=== PATIENT | female | born 1945 | race Caucasian/White ===

== ENCOUNTER 2021-05-16 11:34 | Outpatient (CLI) | payer MEDICARE, SELFPAY ==
--- NOTE | ~2021-05-16 | XR_ITS ---
XR lumbar spine min 4V DATE: 05/16/2021 12:07 INDICATION: Chronic bilateral low back pain TECHNIQUE: AP, lateral, bilateral oblique views, coned lateral lumbosacral view COMPARISON: None FINDINGS: There is diffuse osteopenia. There is 15 degrees rotatory dextroscoliosis of the lumbar spine measured from T12 to L4. There is multilevel degenerative disc disease, most pronounced on the left at L2-3, right at L4-5. No fracture or, spondylolysis or spondylolisthesis is detected. The lumbar pedicles are intact. The s acroiliac joints appear normal. IMPRESSION: 15 degrees rotatory dextroscoliosis and multilevel degenerative disc disease of lumbar sp ine Diffuse osteopenia Reviewed, dictated and finalized at location A. IMPRESSION: 15 degrees rotatory dextroscoliosis and multilevel degenerative dis c disease of lumbar spine Diffuse osteopenia
== END 2021-05-16 11:35 | disposition home or self-care (01) ==
PROVIDERS: PCP Family Medicine; Visit Provider Family Medicine
DX: M85.88 Other specified disorders of bone density and structure, other site (principal); M51.36 Other intervertebral disc degeneration, lumbar region
CPT/HCPCS: 72110

== ENCOUNTER → 2023-10-25 11:35 | Outpatient (REF) | payer MEDICARE, SELFPAY | LOC: ANHLAB 11:35 | PROVIDERS: PCP Family Medicine; Visit Provider Plastic Surgery | DX: D48.5 Neoplasm of uncertain behavior of skin (principal) | CPT/HCPCS: 88305 ==

== ENCOUNTER 2024-07-25 12:47 | Emergency (ER) | payer MEDICARE, SELFPAY ==
[2024-07-25 13:00] VITALS: BP 141/60; PULSE 74; RESP 16; TEMP 36.4; O2SAT 98
--- NOTE | 2024-07-25 13:00 | ED_ITS ---
HPI - URI/Sore Throat General Chief Complaint: Upper Respiratory Infection Stated Complaint: HEAD CONGESTION/COVID EXPOSURE Time Seen by Provider: 07/25/24 13:05 Source: patient Mode of arrival: ambulatory Limitations: no limitations History of Present Illness HPI Narrative: Regi is a 78-year-old female patient presenting to the clinic today with complaints of head congestion that started last night. States she has had positive COVID exposure. MD elicited complaint: nasal congestion Related Data Home Medications ?Medication ?Instructions ?Recorded ?Confirmed ?Last Taken ?Type budesonide-formoterol HFA 160 inhalation 07/25/24 Unknown History mcg-4.5 mcg/actuation aerosol inhaler montelukast 10 mg tablet mg 07/25/24 Unknown History naproxen 500 mg tablet mg 07/25/24 Unknown History prednisone 10 mg tablet mg 07/25/24 Unknown History sodium hyaluronate (viscosup) 10 mg intra-articular 07/25/24 Unknown History mg/mL(mw 2.4-3.6 million)intra-articular syringe (Euflexxa) Allergies Allergy/AdvReac Type Severity Reaction Status Date / Time Penicillins Allergy Unknown RASH Verified 12/20/23 10:23 Review of Systems Review of Systems: Pertinent positives per HPI. Patient denies any fever, chills, rash, headache, visual changes, dizziness, cough, shortness of breath, chest pain, palpitations, nausea, vomiting, diarrhea, constipation, abdominal pain, or any urinary issues. PMFSH Social History Social History Smoking status: Never smoker Alcohol intake: current Substance use: never Substance use type: does not use Comments At the time of my signature, I reviewed and agree with the nursing past medical, surgical, social, and family history. There is no relevant family history pertinent to the patient complaint. Exam Narrative: General: Well-developed, well nourished, in no apparent distress Head: Normocephalic, atraumatic Eyes: Pupils equally round and reactive to light bilaterally, EOM intact, sclera and conjunctive clear, no discharge, lids normal Ears: TMs intact and clear, ear canals clear, no drainage, grossly hearing normal. Nose: Nares patent, clear nasal discharge, no inflammation, no sinus tenderness. Mouth: Oral pharynx without lesions or masses, good dentition, MMM. Neck: Supple, trachea midline, no enlargement of anterior or posterior cervical nodes, no thyroid masses or goiter palpable. Cardio: Regular rate and rhythm, s1 and s2 normal, no murmur appreciated. Resp: Clear to auscultation bilaterally, no rhonchi, rales, wheezing or rubs Course Course Emergency Course: Portions of this record may have been created with voice recognition software. Level of Care: Express Care Visit Vital Signs Vital signs: Vital Signs Temperature 36.4 C 07/25/24 13:00 Pulse Rate 74 07/25/24 13:00 Respiratory Rate 16 07/25/24 13:00 Blood Pressure 141/60 H 07/25/24 13:00 Pulse Oximetry 98 07/25/24 13:00 Temperature 36.4 C 07/25/24 13:00 Pulse Rate 74 07/25/24 13:00 Respiratory Rate 16 07/25/24 13:00 Blood Pressure 141/60 H 07/25/24 13:00 Pulse Oximetry 98 07/25/24 13:00 Vital signs reviewed MDM - URI/Sore Throat MDM Narrative Medical decision making narrative: At the time of visit patient is resting comfortably on the exam table. Patient appears to be nontoxic. Labs: COVID test was negative in the clinic today. Plan: I suspect patient has URI. Supportive measures were discussed with the patient and they voiced understanding discharge instructions and agrees to treatment plan. Return precautions reviewed Differential Diagnosis Differential diagnosis: Likely upper respiratory infection, otitis media, sinusitis, viral infection, bronchitis, influenza, pharyngitis and other (COVID) Discharge Plan Discharge Clinical Impression: Upper respiratory infection Qualifiers: URI type: unspecified URI Qualified Code(s): J06.9 - Acute upper respiratory infection, unspecified Patient Disposition: Home, Self-Care Condition: Stable Instructions: Antibiotic Form, Upper Respiratory Infection (ED) Additional Instructions: COVID testing was negative in the clinic today. Increase fluids and stay well hydrated Tylenol/motrin for pain/fever Flonase and OTC antihistamines as directed Vicks vapor rub to open sinuses Sinus rinses for congestion Cepacol spray, cough drops, throat lozenges, warm tea with honey/lemon, gargle salt water to soothe throat BRAT diet for diarrhea Clear liquids x 24 hours then advance as tolerated for nausea/vomiting Go to the ED if you develop a worsening in your condition- high fever not controlled by Tylenol or Motrin, dehydration, weakness, lethargy, shortness of breath, or chest pain. Follow up with your PCP in 3-5 days if symptoms persist. Patient Language: [place] Citizen Prescriptions: No Action prednisone 10 mg tablet montelukast 10 mg tablet naproxen 500 mg tablet budesonide-formoterol 160-4.5 mcg/actuation HFA aerosol inhaler INHALATION Euflexxa 10 mg/mL(mw 2.4 -3.6 million) syringe INTRA-ARTICULAR Follow-up/Referrals: Harms,Romel Ball M.D. [Primary Care Provider] - Time of Disposition: 13:13 Quality NIHSS Nursing Documentation ED NIHSS nursing documentation: reviewed/agree
[2024-07-25 13:16] LABS: EDCOVIDSCREEN Negative (Negative)
== END 2024-07-25 13:28 | disposition home or self-care (01) ==
PROVIDERS: Emergency Provider Nurse Practitioner Family; PCP Family Medicine
DX: J06.9 Acute upper respiratory infection, unspecified (principal); Z20.822 Contact with and (suspected) exposure to COVID-19
CPT/HCPCS: 87426; 99212; G0463

== ENCOUNTER 2024-07-27 18:08 | Emergency (ER) | payer MEDICARE, SELFPAY ==
--- NOTE | ~2024-07-27 | CT_ITS ---
EXAMINATION: CTA chest PE protocol DATE: 07/28/2024 02:27 INDICATION: Hypoxia. TECHNIQUE: Computed tomography angiography (CTA) of the chest was performed with 100 mL Omnipaque-350 intravenous contrast timed to evaluate the pulmonary arteries. Coronal maximum intensity projection 3D-reconstructions were created by the technologist. Automated exposure control and iterative reconst ruction technique were employed. The dose-length product was 449.17 mGy-cm. COMPARISON: Chest CT 09/14/2014 FINDINGS: The lungs demonstrate mild atelectasis. No pleural effusion. Cardiomegaly is noted. There a re coronary artery calcifications. No pericardial effusion. There are acute pulmonary emboli in the u pper lobes and right lower lobe. There is a small sliding hiatal hernia. There are masses in the adre nal glands measuring up to 2.0 cm on the left measuring low attenuation, consistent with adenomas. Th ere is mild thoracic spondylosis. There is mild chronic height loss of multiple vertebral bodies. IMPRESSION: 1. Acute bilateral pulmonary emboli. I called this result to Dr. Singer. Reviewed, dictated and finalized at location A. TORING COORDINATOR
--- NOTE | ~2024-07-27 | XR_ITS ---
EXAMINATION: XR chest 2V Exam Date/Time: 07/27/2024 19:05 MARKETING FINANCE SPECIALIST HISTORY: sob, covid + SINCE WEDNESDAY Comparison: 08/26/2018. RESULT: Lines, tubes, and devices: None. Lungs and pleura: Clear. Cardiomediastinal silhouette: Stable. Other: No acute osseous or upper abdominal finding. IMPRESSION: No acute cardiopulmonary process. Reviewed, dictated and finalized at location K. ETING FINANCE SPECIALIST
[2024-07-27 18:15] VITALS: BP 132/73; PULSE 118; RESP 18; TEMP 36.3; O2SAT 95
--- NOTE | 2024-07-27 18:39 | ED.SOB ---
HPI - SOB/Dyspnea General Chief Complaint: Shortness of Breath/Dyspnea <Josey Hartman PA-C - Last Filed: 07/31/24 18:57> Stated Complaint: covid +, low O2 <Josey Hartman PA-C - Last Filed: 07/31/24 18:57> Time Seen by Provider: 07/27/24 18:39 <GABE Arevalo Last Filed: 07/31/24 18:57> Focused HPI: This is a 78 year old female that presents to the ER for low oxygen. Reports they have been as low as 85. Reports cough, shortness of breath, sore throat, ear pressure. Her PCP prompted her to be seen in the ER. She is COVID +. Denies fevers. GENERAL: Well-appearing, well-nourished, and in no acute distress. HEAD: Normocephalic, atraumatic. CHEST: Clear to auscultation. ?No respiratory distress. HEART: Regular rate and rhythm.? NEURO: ?Alert and oriented x3. Patient screened in triage and initial orders placed.? ?Additional care and disposition to be based upon?diagnostic testing and treatment. <Josey Hartman PA-C - Last Filed: 07/31/24 18:57> Focused HPI: This is a 78 year old female that presents to the ER for low oxygen. Reports they have been as low as 85. Reports cough, shortness of breath, sore throat, ear pressure. Her PCP prompted her to be seen in the ER. She is COVID +. Denies fevers. GENERAL: Well-appearing, well-nourished, and in no acute distress. HEAD: Normocephalic, atraumatic. CHEST: Clear to auscultation. ?No respiratory distress. HEART: Regular rate and rhythm.? NEURO: ?Alert and oriented x3. Patient screened in triage and initial orders placed.? ?Additional care and disposition to be based upon?diagnostic testing and treatment. <GABE Montgomery Last Filed: 07/28/24 17:08> Source: patient <GABE Montgomery Last Filed: 07/28/24 17:08> Mode of arrival: ambulatory <Marilyn Duenas PA-C - Last Filed: 07/28/24 17:08> Limitations: no limitations <Marilyn Duenas PA-C - Last Filed: 07/28/24 17:08> History of Present Illness HPI Narrative: Agree with above HPI. Patient reports she was exposed to COVID-19 on Wednesday, began having sx's on Wednesday, tested positive yesterday. Feels generally unwell, but denies feeling significantly short of breath. Does report that her oxygen level was down to 85%, but ranging more in the upper 80s today. She does have history of asthma. Denies chest pain. 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 <Marilyn Duenas PA-C - Last Filed: 07/28/24 17:08> Related Data Home Medications: Home Medications ?Medication ?Instructions ?Recorded ?Confirmed ?Last Taken ?Type montelukast 10 mg tablet 10 mg PO QPM 07/25/24 07/28/24 07/26/24 History naproxen 500 mg tablet 500 mg PO Q6H PRN pain 07/25/24 07/28/24 Unknown History prednisone 10 mg tablet 10 mg PO DAILY 07/25/24 07/28/24 07/26/24 History sodium hyaluronate (viscosup) 10 10 mg intra-articular [id number] 07/25/24 07/28/24 Unknown History mg/mL(mw 2.4-3.6 million)intra-articular syringe (Euflexxa) ergocalciferol (vitamin D2) 1,250 1,250 mcg PO WEEKLY 07/28/24 07/28/24 Unknown History mcg (50,000 unit) capsule fluticasone fur. 200 mcg-umeclid 1 inh inhalation DAILY 07/28/24 07/28/24 Unknown History 62.5 mcg-vilant 25 mcg inhalat.powder (Trelegy Ellipta) <Josey Hartman PA-C - Last Filed: 07/31/24 18:57> Allergies/Adverse Reactions: Allergies Allergy/AdvReac Type Severity Reaction Status Date / Time Penicillins Allergy Unknown RASH Verified 07/28/24 09:56 <Josey Hartman PA-C - Last Filed: 07/31/24 18:57> Review of Systems Review of Systems: All systems reviewed & are unremarkable except as noted in HPI. <Marilyn Duenas PA-C - Last Filed: 07/28/24 17:08> All systems reviewed & are unremarkable except as noted in HPI and below <Marilyn Duenas PA-C - Last Filed: 07/28/24 17:08> [facility] Family History Family History: Family History Father Cancer of kidney CHF (congestive heart failure) Mother Skin cancer <Josey Hartman PA-C - Last Filed: 07/31/24 18:57> Social History Social History: Social History Smoking status: Never smoker Alcohol intake: current Drinks per week: 1 Substance use: never Substance use type: does not use Do You Feel Safe in your Home?: Yes Lack of Transportation: No Lack of Food: Never True Current Housing: I Have Housing Concerned About Future Housing: No Difficulty Paying Gas/Electric Bills: No Difficulty Paying for Meds: No Currently Unemployed: No Education: Don't Know Difficulty w/ Childcare or Family Care: No Spiritual care concerns: No <Josey Hartman PA-C - Last Filed: 07/31/24 18:57> Exam Narrative: GENERAL: Mildly ill appearing, obese with BMI of 32.9, non-toxic, in no acute distress. HEAD: Normocephalic, atraumatic. RESPIRATORY: Airway patent, respirations nonlabored. Clear to auscultation bilaterally, no rales, rhonchi, wheezing. No significant focal lung sounds. Occasional coughing. CARDIOVASCULAR: Borderline tachycardic with regular rhythm without murmurs, rubs, or gallops. ABDOMINAL: Soft, nontender, nondistended. Normoactive BS. MUSCULOSKELETAL: Moves all extremities. No gross deformities. No peripheral edema. SKIN: Warm, dry, normal color. NEURO: A&O X3. Speech clear. Cranial nerves II-XII grossly intact. Steady gait. No ataxic movements. PSYCHIATRIC: Appropriate mood and affect. Normal interaction. <Marilyn Duenas PA-C - Last Filed: 07/28/24 17:08> Course SCHOOL PHYSICAL THERAPIST/PA Physician Supervision For this patient encounter, I reviewed the SCHOOL PHYSICAL THERAPIST or PA documentation, treatment plan, and medical decision making; and I had [id number] time with this patient. <Zay Singer MD - Last Filed: 07/28/24 06:26> Vital Signs Vital signs: Vital Signs Temperature 97.4 F L 07/27/24 18:15 Pulse Rate 118 H 07/27/24 18:15 Respiratory Rate 18 07/27/24 18:15 Blood Pressure 132/73 07/27/24 18:15 Pulse Oximetry 95 07/27/24 18:15 Temperature 98.1 F 07/28/24 05:51 Pulse Rate 63 07/28/24 05:51 Respiratory Rate 14 07/28/24 05:51 Blood Pressure 138/64 07/28/24 05:51 Pulse Oximetry 94 07/28/24 05:51 Oxygen Delivery Room Air 07/28/24 01:12 <Josey Hartman PA-C - Last Filed: 07/31/24 18:57> Vital Signs Temperature 97.4 F L 07/27/24 18:15 Pulse Rate 118 H 07/27/24 18:15 Respiratory Rate 18 07/27/24 18:15 Blood Pressure 132/73 07/27/24 18:15 Pulse Oximetry 95 07/27/24 18:15 Temperature 98.1 F 07/28/24 05:51 Pulse Rate 63 07/28/24 05:51 Respiratory Rate 14 07/28/24 05:51 Blood Pressure 138/64 07/28/24 05:51 Pulse Oximetry 94 07/28/24 05:51 Oxygen Delivery Room Air 07/28/24 01:12 <Marilyn Duenas PA-C - Last Filed: 07/28/24 17:08> Vital Signs Temperature 97.4 F L 07/27/24 18:15 Pulse Rate 118 H 07/27/24 18:15 Respiratory Rate 18 07/27/24 18:15 Blood Pressure 132/73 07/27/24 18:15 Pulse Oximetry 95 07/27/24 18:15 Temperature 98.1 F 07/28/24 05:51 Pulse Rate 63 07/28/24 05:51 Respiratory Rate 14 07/28/24 05:51 Blood Pressure 138/64 07/28/24 05:51 Pulse Oximetry 94 07/28/24 05:51 Oxygen Delivery Room Air 07/28/24 01:12 <Zay Singer MD - Last Filed: 07/28/24 06:26> MDM - SOB/Dyspnea MDM Narrative Medical decision making narrative: Patient presented to ED with known COVID-19, reporting low oxygen saturations today. Initial vital signs revealed tachycardia, oxygen was stable on room air at 95% initially. Upon my evaluation, patient's oxygen saturation was dipping down to 91 while she was sitting in the ED stretcher. She was ambulated throughout the ED and actually no hypoxia was noted. Patient did OK with this, did not feel significant SOB. EKG significant for sinus tachycardia, some nonspecific ST changes, no acute ST elevation or depression. Patient is denying chest pain. Trop/BNP pending. CBC is without leukocytosis. Possible mild hemoconcentration with elevated hemoglobin. Given fluids. Sodium is low at 127. Fluids ongoing. No evidence of mental status changes. Electrolytes are otherwise stable. Initial chest x-ray is clear. CT of chest was obtained due to report of hypoxia with known COVID-19 disease. Care signed out to Dr. Singer at shift change pending STAT RAD CTA results. <Marilyn Duenas PA-C - Last Filed: 07/28/24 17:08> Medical Records Attestation: I reviewed the patient's medical records. <Marilyn Duenas PA-C - Last Filed: 07/28/24 17:08> Lab Data Attestation: I reviewed the patient's lab results. <Marilyn Duenas PA-C - Last Filed: 07/28/24 17:08> Result diagrams: 07/27/24 20:59 07/27/24 20:59 <Josey Hartman PA-C - Last Filed: 07/31/24 18:57> Labs: Lab Results 07/27/24 Range/Units 20:59 WBC 8.8 (4.5-10.0) K/mm3 RBC 4.94 (4.2-5.4) M/mm3 Hgb 16.0 H (12.0-15.0) g/dL Hct 46.4 (37.0-47.0) % MCV 93.9 (80-100) fl MCH 32.4 (26-34) pg MCHC 34.5 (32-36) g/dl RDW 12.6 (11.5-14.5) % Plt Count 189 (150-375) k/mm3 MPV 9.4 (7.4-10.4) fl Immature Gran % (Auto) 0.9 H (0-0.5) % Neut % (Auto) 63.8 (45.5-73.1) % Lymph % (Auto) 17.3 L (18.3-44.2) % Pinal % (Auto) 16.6 H (2.6-8.5) % Eos % (Auto) 0.8 (0-4.4) % Baso % (Auto) 0.6 (0.2-1.2) % Lymph # (Auto) 1.52 (0.9-3.2) K/mm3 P[place] # (Auto) 1.5 H (0.1-0.6) K/mm3 Eos # (Auto) 0.1 (0-0.3) K/mm3 Baso # (Auto) 0.1 (0.0-0.1) K/mm3 Abs Immat Gran (auto) 0.08 H (0.00-0.031) K/mm3 Absolute Neuts (auto) 5.6 (1.3-6.7) K/mm3 Absolute Nucleated RBC 0.000 (0.0-0.012) K/mm3 Nucleated RBC % 0.0 (0.0-0.2) % PT 13.5 (11.1-14.7) Seconds INR 1.0 APTT 26.7 (22.3-36.8) Seconds Sodium 127 L (137-145) mmol/L Potassium 3.8 (3.4-5.0) mmol/L Chloride 98 (98-107) mmol/L Carbon Dioxide 28 (22-30) mmol/L Anion Gap 1 L (4-12) mmol/L BUN 15 (7-17) mg/dL Creatinine 0.80 (0.7-1.0) mg/dL Estim Creat Clear Calc 61 ml/min Estimated GFR > 60 (59 - ) Glucose 135 H (65-110) mg/dL Calcium 8.5 (8.4-10.2) mg/dL Total Bilirubin 0.9 (0.2-1.3) mg/dL AST 24 (14-36) U/L ALT 21 (6-35) U/L Alkaline Phosphatase 75 (38-126) U/L Troponin I < 0.012 (0.000-0.034) ng/mL NT-Pro-B Natriuret Pep 846 H (19.9-100) pg/mL Total Protein 7.0 (6.3-8.2) g/dL Albumin 4.0 (3.5-5.1) g/dL Influenza A (RT-PCR) Negative (Negative) Influenza B (RT-PCR) Negative (Negative) RSV (RT-PCR) Negative (Negative) SARS-CoV-2 RNA (RT-PCR) Positive A (Negative) <Josey Hartman PA-C - Last Filed: 07/31/24 18:57> Lab Results 07/27/24 Range/Units 20:59 WBC 8.8 (4.5-10.0) K/mm3 RBC 4.94 (4.2-5.4) M/mm3 Hgb 16.0 H (12.0-15.0) g/dL Hct 46.4 (37.0-47.0) % MCV 93.9 (80-100) fl MCH 32.4 (26-34) pg MCHC 34.5 (32-36) g/dl RDW 12.6 (11.5-14.5) % Plt Count 189 (150-375) k/mm3 MPV 9.4 (7.4-10.4) fl Immature Gran % (Auto) 0.9 H (0-0.5) % Neut % (Auto) 63.8 (45.5-73.1) % Lymph % (Auto) 17.3 L (18.3-44.2) % P[place] % (Auto) 16.6 H (2.6-8.5) % Eos % (Auto) 0.8 (0-4.4) % Baso % (Auto) 0.6 (0.2-1.2) % Lymph # (Auto) 1.52 (0.9-3.2) K/mm3 Pinal # (Auto) 1.5 H (0.1-0.6) K/mm3 Eos # (Auto) 0.1 (0-0.3) K/mm3 Baso # (Auto) 0.1 (0.0-0.1) K/mm3 Abs Immat Gran (auto) 0.08 H (0.00-0.031) K/mm3 Absolute Neuts (auto) 5.6 (1.3-6.7) K/mm3 Absolute Nucleated RBC 0.000 (0.0-0.012) K/mm3 Nucleated RBC % 0.0 (0.0-0.2) % PT 13.5 (11.1-14.7) Seconds INR 1.0 APTT 26.7 (22.3-36.8) Seconds Sodium 127 L (137-145) mmol/L Potassium 3.8 (3.4-5.0) mmol/L Chloride 98 (98-107) mmol/L Carbon Dioxide 28 (22-30) mmol/L Anion Gap 1 L (4-12) mmol/L BUN 15 (7-17) mg/dL Creatinine 0.80 (0.7-1.0) mg/dL Estim Creat Clear Calc 61 ml/min Estimated GFR > 60 (59 - ) Glucose 135 H (65-110) mg/dL Calcium 8.5 (8.4-10.2) mg/dL Total Bilirubin 0.9 (0.2-1.3) mg/dL AST 24 (14-36) U/L ALT 21 (6-35) U/L Alkaline Phosphatase 75 (38-126) U/L Troponin I < 0.012 (0.000-0.034) ng/mL NT-Pro-B Natriuret Pep 846 H (19.9-100) pg/mL Total Protein 7.0 (6.3-8.2) g/dL Albumin 4.0 (3.5-5.1) g/dL Influenza A (RT-PCR) Negative (Negative) Influenza B (RT-PCR) Negative (Negative) RSV (RT-PCR) Negative (Negative) SARS-CoV-2 RNA (RT-PCR) Positive A (Negative) <Marilyn Duenas PA-C - Last Filed: 07/28/24 17:08> Lab Results 07/27/24 Range/Units 20:59 WBC 8.8 (4.5-10.0) K/mm3 RBC 4.94 (4.2-5.4) M/mm3 Hgb 16.0 H (12.0-15.0) g/dL Hct 46.4 (37.0-47.0) % MCV 93.9 (80-100) fl MCH 32.4 (26-34) pg MCHC 34.5 (32-36) g/dl RDW 12.6 (11.5-14.5) % Plt Count 189 (150-375) k/mm3 MPV 9.4 (7.4-10.4) fl Immature Gran % (Auto) 0.9 H (0-0.5) % Neut % (Auto) 63.8 (45.5-73.1) % Lymph % (Auto) 17.3 L (18.3-44.2) % P[place] % (Auto) 16.6 H (2.6-8.5) % Eos % (Auto) 0.8 (0-4.4) % Baso % (Auto) 0.6 (0.2-1.2) % Lymph # (Auto) 1.52 (0.9-3.2) K/mm3 [place] # (Auto) 1.5 H (0.1-0.6) K/mm3 Eos # (Auto) 0.1 (0-0.3) K/mm3 Baso # (Auto) 0.1 (0.0-0.1) K/mm3 Abs Immat Gran (auto) 0.08 H (0.00-0.031) K/mm3 Absolute Neuts (auto) 5.6 (1.3-6.7) K/mm3 Absolute Nucleated RBC 0.000 (0.0-0.012) K/mm3 Nucleated RBC % 0.0 (0.0-0.2) % PT 13.5 (11.1-14.7) Seconds INR 1.0 APTT 26.7 (22.3-36.8) Seconds Sodium 127 L (137-145) mmol/L Potassium 3.8 (3.4-5.0) mmol/L Chloride 98 (98-107) mmol/L Carbon Dioxide 28 (22-30) mmol/L Anion Gap 1 L (4-12) mmol/L BUN 15 (7-17) mg/dL Creatinine 0.80 (0.7-1.0) mg/dL Estim Creat Clear Calc 61 ml/min Estimated GFR > 60 (59 - ) Glucose 135 H (65-110) mg/dL Calcium 8.5 (8.4-10.2) mg/dL Total Bilirubin 0.9 (0.2-1.3) mg/dL AST 24 (14-36) U/L ALT 21 (6-35) U/L Alkaline Phosphatase 75 (38-126) U/L Troponin I < 0.012 (0.000-0.034) ng/mL NT-Pro-B Natriuret Pep 846 H (19.9-100) pg/mL Total Protein 7.0 (6.3-8.2) g/dL Albumin 4.0 (3.5-5.1) g/dL Influenza A (RT-PCR) Negative (Negative) Influenza B (RT-PCR) Negative (Negative) RSV (RT-PCR) Negative (Negative) SARS-CoV-2 RNA (RT-PCR) Positive A (Negative) <Zay Singer MD - Last Filed: 07/28/24 06:26> Imaging Data Attestation: I personally reviewed and interpreted this imaging study as follows: <Marilyn Duenas PA-C - Last Filed: 07/28/24 17:08> Radiologist's impression: ITS Impressions Chest X-Ray 07/27/24 19:21 IMPRESSION: No acute cardiopulmonary process. Chest CTA 07/28/24 05:48 IMPRESSION: 1. Acute bilateral pulmonary emboli. I called this result to Dr. Singer. <Josey Hartman PA-C - Last Filed: 07/31/24 18:57> ECG Data EKG #1: Attestation: I personally reviewed and interpreted this ECG as follows: <Marilyn Duenas PA-C - Last Filed: 07/28/24 17:08> ECG completion date: 07/27/24 <GABE Montgomery Last Filed: 07/28/24 17:08> ECG completion time: 20:54 <GABE Montgomery Last Filed: 07/28/24 17:08> EKG Interpretation: tachycardia (102), sinus rhythm, PVCs and non-specific ST changes <Marilyn Duenas PA-C - Last Filed: 07/28/24 17:08> Critical Care Time Critical Care Time Critical Care Time: Yes <GABE Arevalo Last Filed: 07/31/24 18:57> Total Critical Care Time: 35 <GABE Arevalo Last Filed: 07/31/24 18:57> Discharge Plan Discharge Clinical Impression: COVID-19 <GABE Arevalo Last Filed: 07/31/24 18:57> Patient Disposition: Home, Self-Care <GABE Arevalo Last Filed: 07/31/24 18:57> Condition: Stable <GABE Arevalo Last Filed: 07/31/24 18:57> Instructions: Antibiotic Form, Upper Respiratory Infection (ED), COVID-19 (Coronavirus Disease 2019) (ED) <GABE Arevalo Last Filed: 07/31/24 18:57> Patient Language: Senegalese <GABE Arevalo Last Filed: 07/31/24 18:57> Prescriptions: No Action prednisone 10 mg tablet 10 mg PO DAILY montelukast 10 mg tablet 10 mg PO QPM naproxen 500 mg tablet 500 mg PO Q6H PRN (Reason: pain) Euflexxa 10 mg/mL(mw 2.4 -3.6 million) syringe 10 mg INTRA-ARTICULAR [id number] ergocalciferol (vitamin D2) 1,250 mcg (50,000 unit) capsule 1,250 mcg PO WEEKLY Trelegy Ellipta 200-62.5-25 mcg blister with device 1 inh INHALATION DAILY Eliquis 5 mg Tablet 5 mg PO Q12HR Qty: 60 0RF Eliquis 5 mg Tablet 10 mg PO Q12HR Qty: 26 0RF <GABE Arevalo Last Filed: 07/31/24 18:57> Follow-up/Referrals: Harms,Romel K., M.D. [Primary Care Provider] - <Josey Hartman PA-C - Last Filed: 07/31/24 18:57> Time of Disposition: 05:42 <Josey Hartman PA-C - Last Filed: 07/31/24 18:57> 05:42 <Marilyn Duenas PA-C - Last Filed: 07/28/24 17:08> 05:42 <Zay Singer MD - Last Filed: 07/28/24 06:26> Sign Out Sign Out Data: Patient Sign Out occurred on 07/28/24 at 04:06. Patient's care was discussed, and care was transferred from Marilyn Duenas PA-C to Zay Singer MD. <Josey Hartman PA-C - Last Filed: 07/31/24 18:57>
--- NOTE | 2024-07-27 18:41 | ECG_ITS ---
Test Date: 2024-07-27 20:54:12 Measurements Intervals [place] Rate: 102 P: 58 NC: 166 QRS: 14 QRSD: 86 T: 70 QT: 313 QTc: 408 Interpretive Statements SINUS TACHYCARDIA WITH OCCASIONAL SUPRAVENTRICULAR PREMATURE COMPLEXES POSSIBLE LEFT ATRIAL ENLARGEMENT [-0.1mV P WAVE IN V1/V2] NONSPECIFIC ST & T-WAVE ABNORMALITY ABNORMAL ECG No previous ECG available for comparison Electronically Signed On 07-28-2024 17:10:18 LIFE [employer] by Fred Goodman M.D.
[2024-07-27 21:01] VITALS: BP 113/53; PULSE 104; RESP 20; TEMP 37.1; O2SAT 92
[2024-07-27 21:09] LABS: Basophils Absolute Auto 0.1 K/mm3 (0.0-0.1); Basophils Percent Auto 0.6 % (0.2-1.2); Eosinophils Absolute Auto 0.1 K/mm3 (0-0.3); Eosinophils Percent Auto 0.8 % (0-4.4); Hematocrit 46.4 % (37.0-47.0); Immature Granulocyte Absolute 0.08 K/mm3 (0.00-0.031); Immature Granulocyte Percent A 0.9 % (0-0.5); Lymphocytes Absolute Auto 1.52 K/mm3 (0.9-3.2); Lymphocytes Percent Auto 17.3 % (18.3-44.2); Mean Corpuscular HGB Conc 34.5 g/dl (32-36); Mean Corpuscular Hemoglobin 32.4 pg (26-34); Mean Corpuscular Volume 93.9 fl (80-100); Mean Platelet Volume 9.4 fl (7.4-10.4); Monocytes Absolute Auto 1.5 K/mm3 (0.1-0.6); Monocytes Percent Auto 16.6 % (2.6-8.5); Neutrophils Absolute Auto 5.6 K/mm3 (1.3-6.7); Neutrophils Percent Auto 63.8 % (45.5-73.1); Platelet Count Result 189 k/mm3 (150-375); Red Blood Count 4.94 M/mm3 (4.2-5.4); Red Cell Distribution Width 12.6 % (11.5-14.5); White Blood Count 8.8 K/mm3 (4.5-10.0)
[2024-07-27 21:21] LABS: Alanine Aminotransferase 21 U/L (6-35); Alkaline Phosphatase 75 U/L (38-126); Anion Gap 1 mmol/L (4-12); Aspartate Amino Transferase 24 U/L (14-36); Bilirubin,Total 0.9 mg/dL (0.2-1.3); Blood Urea Nitrogen 15 mg/dL (7-17); Calcium 8.5 mg/dL (8.4-10.2); Carbon Dioxide 28 mmol/L (22-30); Chloride 98 mmol/L (98-107); Estimated CRCL calculation 61 ml/min; Estimated Glomerular Filt Rate > 60; Glucose 135 mg/dL (65-110); Potassium 3.8 mmol/L (3.4-5.0); Sodium 127 mmol/L (137-145)
[2024-07-27 21:24] LABS: Prothrombin Time 13.5 Seconds (11.1-14.7)
[2024-07-27 21:25] LABS: Partial Thromboplastin Time 26.7 Seconds (22.3-36.8)
[2024-07-27 21:45] LABS: Influenza A QL RT-PCR Negative (Negative); Influenza B QL RT-PCR Negative (Negative); RSV RNA, RT-PCR Negative (Negative); SARS-CoV-2 RNA PCR Positive (Negative)
[2024-07-28 01:12] VITALS: BP 162/74; PULSE 84; RESP 17; O2SAT 97
[2024-07-28] MEDS: SODIUM CHLORIDE 0.9% IV 1,000 ML 999 ML IV CONT (02:21)
[2024-07-28 02:50] LABS: NT Pro B Type Natriuretic Pept 846 pg/mL (19.9-100); Troponin I < 0.012 ng/mL (0.000-0.034)
[2024-07-28 05:51] VITALS: BP 138/64; PULSE 63; RESP 14; TEMP 36.7; O2SAT 94
--- OUTSIDE RECORDS SUMMARY | 2024-08-04 02:21 | XMS_ITS | Data Portability ---
Author Organization [place] - S [place] [employer] [facility], Main Office Address [address] [place] [address] Care Team Providers Care Petroleum Transport Driver Name Role Phone BARBY JOE Primary Care Provider [phone] BARBY JOE Referring Provider Assessment Encounter Date Assessment Date Assessment LastModified by Organization Details LastModified Time 04/28/2024 04/28/2024 By x-ray exam th e patient is noted to have moderate primary osteoarthritis of the left knee joint particularly in the medial and patellofemoral compartments. We talked about treatment options today in detail we will start with a course of oral prednisone she will stop the naproxen while she is on the prednisone then resume naproxen we also gave her an order for physical therapy for her left knee. We talked about cortisone she wanted proceed therefore under sterile conditions I injected the patient's left knee joint in the office with for cc 0.5% bupivacaine and 20 mg of Kenalog. Patient tolerated procedure well. I will see her back in 6 weeks to see what impact treatment has had. She voiced understanding agrees above plan she will call for any further problems difficulties or questions. 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 She states most of the pain is localized to the medial compartment. She is doing much better after course of conservative measures. We talked about other conservative measures for the future we could do a shot of cortisone again in 6 weeks if necessary we also talked about a gel shot series she was given a brochure on this today we talked about hyaluronic acid in detail. This could be beneficial for her. She would like to avoid surgical intervention and is getting by with conservative measures. She is going to think about it she will call us if she decides she wants to do anything else she wants to do therapy she will call us as well. She voiced understanding and agree with the above plan she will call for any further problems difficulties or questions. 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 At her request under sterile conditions I injected the patient's left knee joint in the office with 4 cc of 0.5% bupivacaine and 20 mg of Kenalog. Patient tolerated the procedure well. To get her through the holidays she would like to try another round of prednisone this has worked previously for her. We will get her set up for that. She would also like to try gel shots we talked about that in detail today we could set that up in 6-8 weeks we will see how she does with this cortisone injection. The last 1 lasted about 2 months. She will call us when she is ready for the gel. She voiced understanding and agreed with the above plan she will call for any further problems difficulties or questions. Not available 07/20/2024 13:46:43 Plan of Treatment Reminders Order Date Submit Date Provider Last Modified By Organization Details Last Modified Time Details Appointments Any 2024 09:30A M CARMEN Cancino Not available Not available Not available Any 2024 09:30A M CARMEN Cancino Not available Not available Not available Any 2024 09:30A M CARMEN Cancino Not available Not available Not available Lab None recorded. Referral None recorded. Procedures injection /aspirati on joint/bur sa (PROC) 2023 024 [email or web address] In-Office Order, Internal Use Only DO Not Attach Compendium DO Not Attach Compendium, Do Not Delete/merge, [id number] 04/28/2024 14:12:31 injection /aspirati on joint/bur sa (PROC) 2023 024 [email or web address] In-Office Order, Internal Use Only DO Not Attach Compendium DO Not Attach Compendium, Do Not Delete/merge, [id number] 07/20/2024 13:38:16 Surgeries None recorded. Imaging None recorded. Medication Orders bupivacai ne HCl 0.5 % (5 mg/mL) injection solution 2023 024 [email or web address] [facility], [address] [place], [address], 04/28/2024 15:57:52 Kenalog 10 mg/mL suspensio n for injection [email or web address] #3259, [address] [place], [address], 04/28/2024 15:57:52 prednison e 10 mg tablets in a dose pack [email or web address] #[facility], [address] [place] [address], [address], 04/28/2024 15:57:52 bupivacai ne HCl 0.5 % (5 mg/mL) injection [email or web address] [address] [place] [address], [address], 07/20/2024 14:03:50 Kenalog 10 mg/mL suspensio n for injection [email or web address] #3[facility], [address] [place], [address], 07/20/2024 14:03:50 prednison e 10 mg tablets in a dose pack [email or web address], [address] [place] [address], [address], 07/20/2024 14:03:50 Patient TargetsNo targets recorded. Patient Instructions Encounter Date Encounter Id Patient Instructions Last Modified By Organization Details Last Modified Time 07/20/2024 [id number] viscosupplementa tion treatment* Not available 07/24/2024 10:51:57 Reason for Referral None Reported. Results Created Date Observation Date Name Description Value Unit Range Abnormal Flag Note LastModifiedBy Organization Detail LastModifiedTime 04/27/20 24 04/26/2024 XR, knee, 3 view No observ ation record ed. [email or web address] Not Available 04/03 10:10:55 Result Notes None recorded. Problems Name Problem SNOMED Code Status Onset Date Resolution Date Notes Provider Name and Address Organization Details Recorded Time Fracture of lower leg 695260675 Active Not Available [facility] 3 13:29:35 Closed fracture of patella 93107487 Active Not Available [facility] 3 13:29:35 Pain in limb 74737678 Active Not Available [facility] 3 13:29:35 Pain of left knee joint 6140831276666 07 Active 2023 MICHAEL Lorenzana [place] [facility] [place] [employer] 4 13:57:22 Osteoarthr itis of left knee joint 6766593531866 09 Active 2023 CARMEN Cancino [address] [place] [address], [phone] , [facility] 4 14:16:40 Problem Notes None recorded. Procedures Surgical History Date Name Laterality Status Provider Name and Address Organization Details Recorded Time open reduction of fracture of femur completed Zenobia Oshea CNA [place] [facility] 04/28/2024 13:55:52 closed reduction of fracture of knee completed Zenobia Oshea CNA [place] [facility] 04/28/2024 13:56:05 Hysterectomy completed Zenobia Oshea CNA [place] [facility] [employer] 04/28/2024 13:56:17 section completed Zenobia pulliam CNA [place] [facility] 04/28/2024 13:56:35 Imaging Results Imaging Date Name Status LastModified by Organiz ation Details LastModified Time 04/26/2024 XR, knee, 3 view completed [email or web address] Information not available 04/27/2024 10:10:55 Procedure Notes None recorded. Medical Equipment None Reported. Allergies Allergen ID Allergen Name Allergen Category Reaction Reaction Severity Criticality Documentation Date Start Date Code Code System Note Provider Name and Address Organization Details Recorded Time 92423 Medicinal product containin g penicilli n and acting as antibacte rial agent (product) medicatio n rash Not available Not available 09/30/2022 56501 05 SNOMED Not Available [facility] 3 13:31:00 97840 oxycodone medicatio n nausea Not available Not available 04/28/2024 7804 RxNorm MICHAEL Lorenzana, [place] [facility] 4 13:51:46 Medications Name Sig Start Date Stop Date Status Note LastModified by Organization Details LastModified Time prednisone 10 mg tablet PLEASE SEE ATTACHED FOR DETAILED DIRECTION S active Not Available Not Available No t Available clindamycin HCl 300 mg capsule TAKE 1 CAPSULE BY MOUTH THREE TIMES A DAY FOR 10 DAYS 04/28 completed Not Available Not Available Not Available azithromyci n 250 mg tablet TAKE 2 TABLETS BY MOUTH TODAY, THEN TAKE 1 TABLET DAILY FOR 4 DAYS DIRECTED 04/28 completed Not Available Not Available Not Available benzonatate 200 mg capsule PLEASE SEE ATTACHED FOR DETAILED DIRECTION S active Not Available Not Available No t Available famotidine 40 mg tablet Take 1 tablet every day by oral route. active Not Available Not Available No t Available bupivacaine HCl 0.5 % (5 mg/mL) injection solution Take 20 mg by injection route. 2023 active Not Available Not Available Not Avai lable ciprofloxac in 500 mg tablet 09/19 completed Not Available Not Available Not Available sulfamethox azole 800 mg-trimetho prim 160 mg tablet TK 1 T PO BID FOR 7 DAYS 09/27 completed Not Available Not Available Not Available prednisone 10 mg tablets in a dose pack Take 1 tab by mouth, 3 times a day for 3 daysTake 1 tab by mouth 2 times a day for 2 daysTake 1 tab by mouth once a day for 1 day 2023 active Not Available Not Available Not Avai lable oxycodone-a cetaminophe n 5 mg-325 mg tablet 09/19 completed Not Available Not Available Not Available aspirin 325 mg tablet,samuel yed release TAKE 1 TABLET BY MOUTH TWICE DAILY FOR 4 WEEKS 09/19 completed Not Available Not Available Not Available Kenalog 10 mg/mL suspension for injection Take 20 mg by injection route. [address] [facility]: 0003- [phone]- [phone] Not Available Not Available Not Available hydrocodone 7.5 mg-acetamin ophen 325 mg tablet 09/19 completed Not Available Not Available Not Available montelukast 10 mg tablet active Not Available Not Available Not Available ergocalcife rol (vitamin D2) 1,250 mcg (50,000 unit) capsule Take 1 capsule every day by oral route. active Not Available Not Available No t Available Transderm-S freelance copywriter 1 mg over 3 days transdermal patch 09/19 completed Not Available Not Available Not Available Cheratussin AC 10 mg-100 mg/5 mL oral liquid 09/19 completed Not Available Not Available Not Available cefdinir 300 mg capsule TAKE 1 CAPSULE BY MOUTH 2 TIMES A DAY FOR 5 DAYS. active Not Available Not Available No t Available naproxen 500 mg tablet Take 1 tablet twice a day by oral route. active for 15 days Not Available Not Available Not Available enoxaparin 40 mg/0.4 mL subcutaneou s syringe active Not Available Not Available No t Available Euflexxa 10 mg/mL (mw 2.4-3.6 million) intra-artic ular syringe active Not Available Not Available Not Available Vitamin D3 04/28 completed Not Available Not Available Not Available PreserVisio n AREDS active Not Available Not Available Not Available budesonide- formoterol HFA 160 mcg-4.5 mcg/actuati on aerosol inhaler active Not Available Not Available Not Available Citracal Plus Bone Density 2019 active Not Available Not Available Not Avai lable Eliquis 5 mg tablet active Not Available Not Available No t Available Trelegy Ellipta 200 mcg-62.5 mcg-25 mcg powder for inhalation active Not Available Not Available N ot Available Vitals Date Recorded Body height Body mass index (BMI) Body weight Provider Name and Address Organization Details Last Updated DateTime 04/28/2024 171.45 cm 32.4 kg/m2 48692.4 g MICHAEL Lorenzana - [place] [employer] 04/28/2024 13:51:09 Date Recorded Body height Body mass index (BMI) Body weight Provider Name and Address Organization Details Last Updated DateTime 06/08/2024 170.18 cm 32.9 kg/m2 00729.4 g [facility] 06/08/2024 15:16:01 Date Recorded Body height Body mass index (BMI) Body weight Provider Name and Address Organization Details Last Updated DateTime 07/20/2024 171.45 cm 32.4 kg/m2 23142.4 g Zenobia Oshea CNA [facility] [employer] [facility] [employer] 07/20/2024 13:36:49 Social History Question Answer Notes LastModified by Organizat ion Details LastModified Time Tobacco Smoking Status Never Smoker MICHAEL Lorenzana [facility] [employer] [facility] 04/28/2024 13:55:24 What Is Your Level Of Alcohol Consumption? Occasional Information not available 04/28/2024 Sex: Unknown Functional Status None recorded. Mental Status None recorded. Family History Relationship Description Onset Age of this Age Resolved Age Notes LastModified by Organization Details LastModified Time Father Diabetes mellitus [email or web address] Not available 2023 13:54:30 Father Heart disease [email or web address] Not available 2023 13:54:40 Father Malignant tumor of kidney [email or web address] Not available 2023 13:55:05 Daughter Malignant tumor of breast [email or web address] Not available 2023 13:54:49 Medical History Condition Response OSTEOPOROSIS Y URINARY/BLADDER/KIDNEY PROBLEMS Y ARTHRITIS Y Gynecological HistoryNo gynecological history recorded. Obstetrics History GPAL:G 0 P 0 0 0 0 Past Encounters Encounter ID Performer Location Encounter Start Date Encounter Closed Date Diagnosis/Indication Diagnosis SNOMED-CT Code Diagnosis ICD10 Code [id number] CARMEN Cancino_[facility] [address] [place] [address] 04/28/2024 13:34:29 04/28/2024 14:26:11 Pain of left knee joint 3224117423 29769 M25.562 Osteoarthr itis of left knee joint 9891368181 98944 M17.12 [id number] CARMEN Cancino_[facility] [address] [place] [address] 06/08/2024 15:11:55 06/08/2024 15:37:56 Osteoarthritis of left knee joint 6405697336 44770 M17.12 Pain of le ft knee joint 6433342870 86417 M25.667 [id number] CARMEN Cancino [facility] [address] [place] [address] 07/20/2024 13:35:02 07/20/2024 14:02:13 Osteoarthritis of left knee joint 7586541118 80824 M17.12 Pain of le ft knee joint 3236708600 44622 M25.562 Health Concerns Section Related Observation LastModified by Organization Detai ls LastModified Time None Recorded Concern Status LastModified by Organization Details LastModified Time None Recorded Advance Directives Directive None Recorded Payers Encounter Date Sequence Insurance Name Policy Number Policy Fink Covered Member ID Fink Member ID Guarantor Name 04/28/2024 1 [employer] (MEDICARE REPLACEMENT PPO) [id number] Regi Carla Radu [id number] Regi Carla Radu 06/08/2024 1 [employer] (MEDICARE REPLACEMENT PPO) [id number] Regi Carla Lovelace [id number] Regi Aguirre Radu 07/20/2024 1 [employer] (MEDICARE REPLACEMENT PPO) [id number] Regi Aguirre Lovelace [id number] Regi Aguirre Lovelace Notes Date Note Type Note Provider Name and Address Organization Details Recorded Time 04/28/2024 text/html The patient is a 78-year-old female who presents with left knee pain. She really was not having too many issues with her knee until recently several days ago she was doing lots of cleaning in her garage at the end of the day she noted that she was having throbbing aching pain mostly in the medial and anterior portion of the left knee. She denies any specific trauma or injury was basically overusing it that day was really not doing any squatting or kneeling and did not slip or twist the knee. She was having so much pain that she went to urgent Care she had x-rays performed. X-rays demonstrated no acute fracture lesion mass she does have old screw and wire fixation from a previous patellar fracture that was done about 8 years ago. The fracture has healed well she does have significant medial compartment narrowing and patellofemoral articulation narrowing as well. Subchondral sclerosis is noted and mild varus deformity. She notes most of the pain is in the medial and anterior compartment. I reviewed the x-rays in detail today with the patient I agree with the above findings. Despite taking naproxen prescribed by the ER her symptoms continue this really has not helped it keeps her awake at night she can not stand or walk for long periods. She denies any swelling or loss of motion does have some pain with extremes of motion. A new past medical history sheet was reviewed and signed on intake sheet of today's date drug allergies current medications family social history previous surgical history 10 point review of systems was reviewed and discussed in detail today with the patient. CARMEN Cancino [address], [place], [address], [facility] 04/28/2024 14:18:18 06/08/2024 text/html patient returns for recheck of her left knee. 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 The fracture healed well she continues to have crepitation she states most of her pain is localized in the medial compartment. Previous x-rays show significant narrowing in the medial compartment which is moderately severe in nature. She was here 6 weeks ago we did a round of oral prednisone followed by naproxen 500 mg I ordered therapy however she never attended the therapy. She states for the most part her knee is feeling pretty good she states she got about 75% relief of her pain still has aches and pains in the left knee if she overdoes it but states for the most part it is livable the knee is a little puffy at times particularly she overdoes it but she has no locking or catching no mechanical symptoms in his feeling pretty good today she comes in today for recheck and to talk about further treatment options for the future if necessary. We reviewed her x-rays again today in detail. 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 She has previous hardware fixation in the patella from an old fracture. She gets by with conservative measures she would like to try a shot of cortisone today she is thinking about doing gel shots in the future we could set those up for her somewhere down the road if she would like. She states the last cortisone injection worked for about 2 months. She would rather avoid surgical intervention denies any new trauma or injury no new symptoms in the left knee. CARMEN Cancino [address] [facility] [facility] [address], [place], [address], [place] [facility] [place] [employer] [facility] 07/20/2024 13:47:14 OBGyn Episode No OBEpisode recorded.
--- OUTSIDE RECORDS SUMMARY | 2024-08-04 02:21 | XMS_ITS | Continuity of Care Document ---
Author Organization [place] - [place] [employer] [facility], [facility] Arie Hernandez Address [address] [place] [address] Care Team Providers Care Bottle Filler Name Role Phone BARBY JOE Primary Care Provider [phone] BARBY JOE Referring Provider Assessment Encounter Date [...] for any further problems difficulties or questions. [email or web address] Not available 04/28/2024 14:16:32 Plan of Treatment Reminders Order Date Submit [...] DO Not Attach Compendium, Do Not Delete/merge, [id number] 04/28/2024 14:12:31 Surgeries None recorded. Imaging None recorded. Medication Orders bupivacai ne HCl 0.5 % (5 mg/mL) injection solution 2023 024 [email or web address] [facility] #3259, [address] [place], [address], 04/28/2024 15:57:52 Kenalog 10 mg/mL suspensio n for injection 2023 024 [email or web address] #3259, [address] [place], [address], 04/28/2024 15:57:52 prednison e 10 mg tablets in a dose pack 2023 024 [email or web address] #3259, [address] [place], [address], 04/28/2024 15:57:52 Patient TargetsNo targets recorded. Patient InstructionsNo instructions recorded. Reason for Referral None Reported. Results Created [...] Details Recorded Time Fracture of lower leg 349778010 Active Not Available [facility] 3 13:29:35 Closed fracture of patella 50826018 Active Not Available [facility] 3 13:29:35 Pain in limb 89764904 Active Not Available [facility] 3 13:29:35 Pain of left knee joint 9412393111487 07 Active 2023 [facility] 4 13:57:22 Osteoarthr itis of left knee joint 5162589761470 09 Active 2023 CARMEN Cancino [address] [facility], [facility] [address], [place], [address] , [facility] 4 14:16:40 Problem Notes None recorded. Procedures Surgical History Date Name Laterality Status Provider Name and Address Organization Details Recorded Time open reduction of fracture of femur completed Zenobia Oshea CNA [place] [facility] 04/28/2024 13:55:52 closed reduction of fracture of knee completed Zenobia Oshea CNA [facility] 04/28/2024 13:56:05 Hysterectomy completed Zenobia Oshea CNA [facility] 04/28/2024 13:56:17 section completed Zenobia pulliam [facility] 04/28/2024 13:56:35 Imaging Results None recorded. Procedure Notes None recorded. Medical Equipment None Reported. Allergies Allergen ID Allergen Name Allergen Category Reaction Reaction Severity Criticality Documentation Date Start Date Code Code System Note Provider Name and Address Organization Details Recorded Time 62545 Medicinal product containin g penicilli n and acting as antibacte rial agent (product) medicatio n rash Not available Not available 09/30/2022 68682 05 SNOMED Not Available [facility] 3 13:31:00 25959 oxycodone medicatio n nausea Not available Not available 04/28/2024 7804 RxNorm MICHAEL Lorenzana, [place] - [facility] 4 13:51:46 Medications Name Sig Start Date [...] 20 mg by injection route. 2023 active [facility]: [phone] Not Available Not Available Not Available hydrocodone 7.5 mg-acetamin ophen 325 mg tablet 09/19 completed Not Available Not Available Not Available montelukast 10 mg tablet active Not Available Not Available Not Available ergocalcife rol (vitamin D2) 1,250 mcg (50,000 unit) capsule Take 1 capsule every day by oral route. active Not Available Not Available No t Available Transderm-S engraver copperplate 1 mg over 3 days transdermal patch [...] Updated DateTime 04/28/2024 171.45 cm 32.4 kg/m2 09477.4 g PARAMJIT LorenzanaA [employer] 04/28/2024 13:51:09 Social History Question Answer Notes LastModified by Organizat ion Details LastModified Time Tobacco Smoking Status Never Smoker Zenobia Oshea, [facility] null, [employer] 04/28/2024 13:55:24 What Is Your Level Of Alcohol Consumption? Occasional [email or web address] Information not available 04/28/2024 Sex: Unknown Functional [...] Diagnosis/Indication Diagnosis SNOMED-CT Code Diagnosis ICD10 Code [id number] CARMEN Cancino [facility] [address] [place] [address] 04/28/2024 13:34:29 04/28/2024 14:26:11 Pain of left knee joint 7480672519 18880 M25.562 Osteoarthr itis of left knee joint 4350188253 04457 M17.12 Health Concerns Section Related Observation LastModified by Organization Detai ls LastModified Time None Recorded Concern Status LastModified by Organization Details LastModified Time None Recorded Payers Encounter Date Sequence Insurance Name Policy Number Policy Fink Covered Member ID Fink Member ID Guarantor Name 04/28/2024 1 [employer] (MEDICARE REPLACEMENT PPO) [id number] Regi Lovelace [id number] Regi Lovelace Notes Date Note Type Note Provider [...] today with the patient. CARMEN Cancino [address], [place], [address], [place] [facility] 04/28/2024 14:18:18 OBGyn Episode No OBEpisode recorded.
--- OUTSIDE RECORDS SUMMARY | 2024-08-04 02:21 | XMS_ITS | Continuity of Care Document ---
Author Organization [place] [employer] [facility], [facility] Orth[facility] Arie Hernandez Address [address] [place] [address] Care Team Providers Care Shell Grader Name Role Phone BARBY JOE Primary Care Provider BARBY JOE Referring Provider [phone] Assessment Encounter Date Assessment Date Assessment LastModified by Organization Details LastModified Time 06/08/2024 06/08/2024 The patient has primary osteoarthritis [...] problems difficulties or questions. [email or web address] Not available 06/08/2024 15:34:27 Plan of Treatment Reminders Order Date Submit Date Provider Last Modified By Organization Details Last Modified Time Details Appointments Any 025 09:30AM CARMEN Cancino Not available Not available Not available Any 025 09:30AM CARMEN Cancino Not available Not available Not available Any 025 09:30AM CARMEN Cancino Not available Not available Not available Lab None record ed. Referral None record ed. Procedures None record ed. Surgeries None record ed. Imaging None record ed. Medication Orders None record ed. Patient TargetsNo targets recorded. Patient InstructionsNo instructions recorded. Reason for Referral None Reported. Problems Name Problem SNOMED Code Status Onset Date Resolution Date Notes Provider Name and Address Organization Details Recorded Time Fracture of lower leg 907639211 Active Not Available [facility] 3 13:29:35 Closed fracture of patella 26812719 Active Not Available [facility] 3 13:29:35 Pain in limb 44485709 Active Not Available [facility] 3 13:29:35 Pain of left knee joint 7812647349104 07 Active 2023 MICHAEL Lorenzana [place] [employer] [facility] 4 13:57:22 Osteoarthr itis of left knee joint 9581892246550 09 Active 2023 CARMEN Cancino [address] [place] [address], [address] , [facility] [employer] [facility] 4 14:16:40 Problem Notes None recorded. Procedures Surgical History Date Name Laterality Status Provider Name and Address Organization Details Recorded Time open reduction of fracture of femur completed Zenobia Oshea CNA [place] [facility] [place] [employer] [facility] 04/28/2024 13:55:52 closed reduction of fracture of knee completed Zenobia Oshea CNA [place] [facility] [place] [employer] [facility] 04/28/2024 13:56:05 Hysterectomy completed Zenobia Oshea CNA [place] [facility] [place] [employer] [facility] 04/28/2024 13:56:17 section completed Zenobia pulliam [employer] [place] [facility] [employer] [facility] 04/28/2024 13:56:35 Imaging Results None recorded. Procedure Notes None recorded. Medical Equipment None Reported. Allergies Allergen ID Allergen Name Allergen Category Reaction Reaction Severity Criticality Documentation Date Start Date Code Code System Note Provider Name and Address Organization Details Recorded Time 35402 Medicinal product containin g penicilli n and acting as antibacte rial agent (product) medicatio n rash Not available Not available 09/30/2022 49079 05 SNOMED Not Available [facility] 3 13:31:00 43066 oxycodone medicatio n nausea Not available Not available 04/28/2024 7804 RxNorm MICHAEL Lorenzana, [place] [facility] [employer] 4 13:51:46 Medications Name Sig Start Date [...] 20 mg by injection route. 2023 active [facility]: 0003- 0494- 20 Not Available Not Available Not Available hydrocodone 7.5 mg-acetamin ophen 325 mg tablet 09/19 completed Not Available Not Available Not Available montelukast 10 mg tablet active Not Available Not Available Not Available ergocalcife rol (vitamin D2) 1,250 mcg (50,000 unit) capsule Take 1 capsule every day by oral route. active Not Available Not Available No t Available Transderm-S copier and printer field technician 1 mg over 3 days transdermal patch [...] Updated DateTime 06/08/2024 170.18 cm 32.9 kg/m2 06114.4 g Zenobia Oshea CNA [employer] 06/08/2024 15:16:01 Social History Question Answer Notes LastModified by Organizat ion Details LastModified Time Tobacco Smoking Status Never Smoker MICHAEL Lorenzana [facility] [employer] 04/28/2024 13:55:24 What Is Your Level Of [...] available 2023 13:54:49 Medical History Condition Response ARTHRITIS Y OSTEOPOROSIS Y URINARY/BLADDER/KIDNEY PROBLEMS Y Gynecological HistoryNo gynecological history recorded. Obstetrics History GPAL:G 0 P 0 0 0 0 Past Encounters Encounter ID Performer Location Encounter Start Date Encounter Closed Date Diagnosis/Indication Diagnosis SNOMED-CT Code Diagnosis ICD10 Code [id number] CARMEN Cancino [facility] [address] [place] [address] 06/08/2024 15:11:55 06/08/2024 15:37:56 Osteoarthritis of left knee joint 2715411385 91875 M17.12 Pain of le ft knee joint 3534467035 49979 M25.562 Health Concerns Section Related Observation LastModified by Organization Detai ls LastModified Time None Recorded Concern Status LastModified by Organization Details LastModified Time None Recorded Payers Encounter Date Sequence Insurance Name Policy Number Policy Fink Covered Member ID Fink Member ID Guarantor Name 06/08/2024 1 [employer] (MEDICARE REPLACEMENT PPO) [id number] Regi Lovelace [id number] Regi Lovelace Notes Date Note Type Note Provider Name and Address Organization Details Recorded Time 06/08/2024 text/html patient returns for recheck of [...] again today in detail. CARMEN Cancino [address], [place], [address], [place] [facility] [place] [employer] [facility] 06/08/2024 15:34:45 OBGyn Episode No OBEpisode recorded.
--- OUTSIDE RECORDS SUMMARY | 2024-08-04 02:21 | XMS_ITS | Continuity of Care Document ---
Author Organization [place] [employer] [facility], [facility] Arie Hernandez Address [address] [place] [address] Care Team Providers Care Feed Research Technician Name Role Phone BARBY JOE Primary Care Provider [phone] BARBY JOE Referring Provider Assessment Encounter Date Assessment Date Assessment LastModified by Organization Details LastModified Time 07/20/2024 07/20/2024 The patient has primary osteoarthritis [...] problems difficulties or questions. [email or web address] Not available 07/20/2024 13:46:43 Plan of Treatment Reminders Order Date Submit Date Provider Last Modified By Organization Details Last Modified Time Details Appointments Any 5 2024 09:30A M CARMEN Cancino Not available Not available Not available Any 2024 09:30A M CARMEN Cancino Not available Not available Not available Any 2024 09:30A M CARMEN Cancino Not available Not available Not available Lab None recorded. Referral None recorded. Procedures injection /aspirati on joint/bur sa (PROC) 2023 [email or web address] In-Office Order, Internal Use Only DO Not Attach Compendium DO Not Attach Compendium, Do Not Delete/merge, [address] 07/20/2024 13:38:16 Surgeries None recorded. Imaging None recorded. Medication Orders bupivacai ne HCl 0.5 % (5 mg/mL) injection solution 2023 024 [email or web address] [id number], [address] [place], [address], 07/20/2024 14:03:50 Kenalog 10 mg/mL suspensio n for injection 2023 024 [email or web address] [id number], [address] [place], [address], 07/20/2024 14:03:50 prednison e 10 mg tablets in a dose pack 2023 [email or web address], [address] [place], [address], 07/20/2024 14:03:50 Patient TargetsNo targets recorded. Patient Instructions Encounter Date Encounter Id Patient Instructions Last Modified By Organization Details Last Modified Time 07/20/2024 [id number] viscosupplementa tion treatment* Not available 07/24/2024 10:51:57 Reason for Referral None Reported. Problems Name Problem SNOMED Code Status Onset Date Resolution Date Notes Provider Name and Address Organization Details Recorded Time Fracture of lower leg 363993502 Active Not Available [facility] 3 13:29:35 Closed fracture of patella 31845891 Active Not Available [facility] 3 13:29:35 Pain in limb 09484016 Active Not Available [facility] 3 13:29:35 Pain of left knee joint 7947492226314 07 Active 2023 Zenobia Oshea CNA null, [place] [facility] [place] [employer] [facility] 4 13:57:22 Osteoarthr itis of left knee joint 5800464539890 09 Active 2023 CARMEN Cancino [address], [place], [address] , [facility] [facility] 4 14:16:40 Problem Notes None recorded. Procedures Surgical History Date Name Laterality Status Provider Name and Address Organization Details Recorded Time open reduction of fracture of femur completed Zenobiasyed Oshea GLOBAL ACCOUNT DIRECTOR [facility] 04/28/2024 13:55:52 closed reduction of fracture of knee completed Zenobia Oshea CNA [facility] 04/28/2024 13:56:05 Hysterectomy completed Zenobia Oshea [employer]LOBAL ACCOUNT DIRECTOR [facility] 04/28/2024 13:56:17 section completed Zenobiasyed pulliam [employer]LO[employer] ACCOUNT DIRECT[employer] [facility] 04/28/2024 13:56:35 Imaging Results None recorded. Procedure Notes None recorded. Medical Equipment None Reported. Allergies Allergen ID Allergen Name Allergen Category Reaction Reaction Severity Criticality Documentation Date Start Date Code Code System Note Provider Name and Address Organization Details Recorded Time 47307 Medicinal product containin g penicilli n and acting as antibacte rial agent (product) medicatio n rash Not available Not available 09/30/2022 75362 05 SNOMED Not Available [facility] 3 13:31:00 83212 oxycodone medicatio n nausea Not available Not available 04/28/2024 7804 RxNorm MICHAEL Lorenzana [facility] 4 13:51:46 Medications Name Sig Start Date [...] 20 mg by injection route. 2023 active [facility]: 0003- 0494- 20 Not Available Not Available Not Available hydrocodone 7.5 mg-acetamin ophen 325 mg tablet 09/19 completed Not Available Not Available Not Available montelukast 10 mg tablet active Not Available Not Available Not Available ergocalcife rol (vitamin D2) 1,250 mcg (50,000 unit) capsule Take 1 capsule every day by oral route. active Not Available Not Available No t Available Transderm-S copier repair technician 1 mg over 3 days transdermal [...] Updated DateTime 07/20/2024 171.45 cm 32.4 kg/m2 71608.4 g Zenobia OsheaMICHAEL [employer] 07/20/2024 13:36:49 Social History Question Answer Notes LastModified by Organizat ion Details LastModified Time Tobacco Smoking Status Never Smoker Zenobia Oshea CNA null, [employer] 04/28/2024 13:55:24 What Is Your Level Of [...] Diagnosis/Indication Diagnosis SNOMED-CT Code Diagnosis ICD10 Code [id number] CARMEN Cancino [facility] [address] [place] [address] 07/20/2024 13:35:02 07/20/2024 14:02:13 Osteoarthritis of left knee joint 8162353194 86640 M17.12 Pain of le ft knee joint 3391427295 17101 M25.562 Health Concerns Section Related Observation LastModified by Organization Detai ls LastModified Time None Recorded Concern Status LastModified by Organization Details LastModified Time None Recorded Payers Encounter Date Sequence Insurance Name Policy Number Policy Fink Covered Member ID Fink Member ID Guarantor Name 07/20/2024 1 [employer] (MEDICARE REPLACEMENT PPO) [id number] Regi Lovelace [id number] Regi Lovelace Notes Date Note Type Note Provider Name and Address Organization Details Recorded Time 07/20/2024 text/html Patient returns complaining of left [...] symptoms in the left knee. CARMEN Cancino [address] [place] [address], [place] [address], [place], [address], [place] [employer] 07/20/2024 13:47:14 OBGyn Episode No OBEpisode recorded.
== END 2024-07-28 05:52 | disposition home or self-care (01) ==
PROVIDERS: Physician Assistant; Emergency Provider Emergency Medicine; PCP Family Medicine
DX: U07.1 COVID-19 (principal); I50.9 Heart failure, unspecified; Z85.528 Personal history of other malignant neoplasm of kidney
CPT/HCPCS: 36415; 71046; 71275; 80053; 83880; 84484; 85025; 85610; 85730; 87637; 93005; 93306; 93970; 96361; 96374; 99284; 99285; A9270; G0378; J1644; J7030; Q9967

== ENCOUNTER 2024-07-28 06:24 | Observation (INO) | payer MEDICARE, SELFPAY ==
[2024-07-28] VITALS (7 sets, daily range): BP systolic 140–150; BP diastolic 49–70; PULSE 69–87; RESP 15–23; TEMP 36.2–37; O2SAT 92–96; BMI 34.0
--- NOTE | 2024-07-28 | ECHO_ITS ---
Patient Info Name: Regi Lovelace Age: 78 years : 1945 Gender: Female Ht: 68 in Wt: 211 lbs BSA: 2.17 m2 HR: 86 bpm BP: 146 / 70 mmHg Heart Rhythm: Sinus Rhythm Technical Quality: Good Exam Date: 07/28/2024 9:45 AM Exam Location: Echo Lab Exam Room: [facility] Patient Status: Outpatient Admit Date: 07/28/2024 Staff Ordering Physician: Arlene Katz APRN Risk Consultant: Nathalie Rahman RDCS Attending Provider: Cole Davis MD Referring Physician: Sterling PEREZ; Exam Type: CA echo doppler color flow Study Info Complete two-dimensional, color flow and Doppler transthoracic echocardiogram is performed. Summary 1. Complete two-dimensional, color flow and Doppler transthoracic echocardiogram is performed. 2. The left ventricle is normal in size and systolic function. The left ventricular ejection fraction is visually estimated to be 55-60%. 3. The right ventricle is normal in size and systolic function. Left Ventricle The left ventricle is normal in size and systolic function. The left ventricular ejection fraction is visually estimated to be 55-60%. Right Ventricle The right ventricle is normal in size and systolic function. Left Atria The left atrium is normal in size. Right Atria The right atrium is normal in size. Atrial Septum The atrial septum appears visually intact. Aortic Valve The aortic valve is trileaflet and opens well. There is trace aortic regurgitation. Pulmonic Valve The pulmonic valve is not well visualized. There is moderate pulmonic valve regurgitation. Mitral Valve The mitral valve is not well visualized. There does not appear to be any significant mitral regurgitation in this study. Tricuspid Valve The tricuspid valve is grossly normal. There is trace tricuspid regurgitation. Pericardium/Pleural Pericardium is normal in appearance with no evidence for significant pericardial effusion. Inferior Vena Cava Inferior vena cava is not well visualized. Aorta The aortic root at the level of the sinus of Valsalva measures 3.4 cm in diameter. Left Ventricular Outflow Tract Name Value Normal LVOT 2D LVOT Diameter 2.2 cm LVOT Doppler LVOT Peak Gradient 3 mmHg LVOT Mean Gradient 2 mmHg LVOT VTI 22 cm LVOT VTI/AV VTI Ratio 1.3 LVOT Stroke Volume 82 ml LVOT CO 5.7 l/min LVOT CI 2.6 l/min/m2 Pulmonic Valve Name Value Normal PV Doppler PV Peak Gradient 3 mmHg PV Regurgitation Doppler AZ Peak End Diastolic Velocity 120 cm/s Mitral Valve Name Value Normal MV Doppler MV Peak Gradient 4 mmHg MV Mean Gradient 1 mmHg MV Decel Marin 80 cm/s2 MV PHT 121 ms MV Area (PHT) 1.8 cm2 4.0-5.0 MV Area (Cont Eq VTI) 3.6 cm2 MV Diastolic Function MV E Peak Velocity 33 cm/s MV A Peak Velocity 93 cm/s MV E/A 0.4 MV Decel Time 416 ms MV Annular TDI MV E/e' (Septal) 8.7 <=8.0 MV E/e' (Lateral) 6.7 <=8.0 MV E/e' (Average) 7.7 Tricuspid Valve Name Value Normal TV Regurgitation Doppler TR Peak Velocity 243 cm/s TR Peak Gradient 24 mmHg Aortic Valve Name Value Normal AV Doppler AV Peak Velocity 86 cm/s AV Peak Gradient 3 mmHg AV Mean Gradient 1 mmHg AV VTI 17 cm AV Area (Cont Eq VTI) 4.8 cm2 >=3.0 AV Area (Cont Eq Hardy) 3.8 cm2 AV Regurgitation 2D LVOT Area 3.7 cm2 AV Regurgitation Doppler AR Decel Time 2,084 ms AR Decel Marin 205 cm/s2 AR PHT 605 ms Ventricles Name Value Normal LV Dimensions 2D/MM IVS Diastolic Thickness (2D) 1.0 cm 0.6-1.0 LVID Diastole (2D) 5.2 cm 3.8-5.2 LVIW Diastolic Thickness (2D) 1.0 cm 0.6-0.9 LVID Systole (2D) 3.5 cm 2.2-3.5 LVOT Diameter 2.2 cm LV Mass (2D Cubed) 182.25 g 67.00-162.00 LV Mass Index (2D Cubed) 84 g/m2 43-95 Relative Wall Thickness (2D) 0.37 LV Fractional Shortening/Ejection Fraction 2D/MM LV Fractional Shortening (2D) 32 % 27-45 LV EF (2D Teicholz) 60 % 54-74 LV Diastolic Volume (4C MOD) 100 ml LV EF (4C MOD) 51 % LV Diastolic Length (4C) 8.0 cm LV Systolic Length (4C) 7.4 cm LV Stroke Volume (4C MOD) 51 ml Atria Name Value Normal LA Dimensions LA Volume (4C A-L) 41 ml RA Dimensions RA Area (4C) 18.4 cm2 <=18.0 Report Signatures
--- NOTE | ~2024-07-28 | US_ITS ---
EXAMINATION: US venous doppler [facility] DATE: 07/28/2024 12:05 INDICATION: Acute bilateral pulmonary emboli. TECHNIQUE: Grayscale ultrasound images without and with compression and Doppler ultrasound images of the bilateral lower extremity veins were obtained. COMPARISON: None. FINDINGS: The visualized portions of right common femoral vein, profunda (deep) femoral vein, femoral vein, pop liteal vein, peroneal veins, posterior tibial veins, and greater saphenous vein outflow are patent. The visualized portions of left common femoral vein, profunda femoral vein, femoral vein, popliteal v ein, peroneal veins, posterior tibial veins, and greater saphenous vein outflow are patent. IMPRESSION: 1. No deep venous thrombosis. Reviewed, dictated and finalized at location A. AIN MENDER
--- NOTE | 2024-07-28 06:26 | ED_ITS ---
HPI - General Adult General Chief complaint: Unspecified <Zay Singer MD - Last Filed: 07/28/24 06:29> Stated complaint: c/b d/t radiology read <Zay Singer MD - Last Filed: 07/28/24 06:29> Time Seen by Provider: 07/28/24 06:25 <Zay Singer MD - Last Filed: 07/28/24 06:29> History of Present Illness HPI narrative: Patient 78-year-old female who presents emergency department with chief complaint of positive CT for pulmonary embolism. The patient was seen earlier diagnosed with COVID-[address] scan was read by stat read as negative and ultimately was over-read by radiology for a pulmonary embolism. The patient was called back instructed return to the emergency department the patient will be started on heparin <Zay Singer MD - Last Filed: 07/28/24 06:29> Related Data Home medications: Home Medications ?Medication ?Instructions ?Recorded ?Confirmed ?Last Taken ?Type montelukast 10 mg tablet 10 mg PO QPM 07/25/24 07/28/24 07/26/24 History naproxen 500 mg tablet 500 mg PO Q6H PRN pain 07/25/24 07/28/24 Unknown History prednisone 10 mg tablet 10 mg PO DAILY 07/25/24 07/28/24 07/26/24 History sodium hyaluronate (viscosup) 10 10 mg intra-articular [id number] 07/25/24 07/28/24 Unknown History mg/mL(mw 2.4-3.6 million)intra-articular syringe (Euflexxa) ergocalciferol (vitamin D2) 1,250 1,250 mcg PO WEEKLY 07/28/24 07/28/24 Unknown History mcg (50,000 unit) capsule fluticasone fur. 200 mcg-umeclid 1 inh inhalation DAILY 07/28/24 07/28/24 Unknown History 62.5 mcg-vilant 25 mcg inhalat.powder (Trelegy Ellipta) <Zay Singer MD - Last Filed: 07/28/24 06:29> Allergies/adverse reactions: Allergies Allergy/AdvReac Type Severity Reaction Status Date / Time Penicillins Allergy Unknown RASH Verified 07/28/24 09:56 <Zay Singer MD - Last Filed: 07/28/24 06:29> Review of Systems 2 Review of Systems: A 10 system review of systems was completed on the patient and is negative except for what is stated in the HPI. Nursing and ancillary documentation was reviewed. <Zay Singer MD - Last Filed: 07/28/24 06:29> PMFSH Family History Family History: Family History (Updated 07/28/24 @ 09:54 by Betty Mendoza RN) Father Cancer of kidney CHF (congestive heart failure) Mother Skin cancer <Zay Singer MD - Last Filed: 07/28/24 06:29> Social History Social History: Social History Smoking status: Never smoker Alcohol intake: current Drinks per week: 1 Substance use: never Substance use type: does not use Do You Feel Safe in your Home?: Yes Lack of Transportation: No Lack of Food: Never True Current Housing: I Have Housing Concerned About Future Housing: No Difficulty Paying Gas/Electric Bills: No Difficulty Paying for Meds: No Currently Unemployed: No Education: Don't Know Difficulty w/ Childcare or Family Care: No Spiritual care concerns: No <Zay Singer MD - Last Filed: 07/28/24 06:29> Exam 2 Narrative: GENERAL: Well-appearing, well-nourished, and in no acute distress. HEAD: Normocephalic, atraumatic. EYES: PERRLA and EOMI. ENT: Nares clear, no rhinorrhea or epistaxis. Mucous membranes moist. NECK: Supple. CHEST: Clear to auscultation. No respiratory distress. HEART: Regular rate and rhythm. No murmur heard. Normal peripheral pulses. ABDOMEN: Soft, nontender, nondistended, normal active bowel sounds. EXTREMITIES: Normal range of motion. No edema. SKIN: Warm, dry, no rash. NEURO: No focal deficits. Alert and oriented x3. PSYCH: Normal mood and affect. <Zay Singer MD - Last Filed: 07/28/24 06:29> Course Vital Signs Vital signs: Vital Signs Temperature 98.1 F 07/28/24 06:30 Pulse Rate 87 07/28/24 06:30 Respiratory Rate 23 H 07/28/24 06:30 Blood Pressure 146/70 H 07/28/24 06:30 Pulse Oximetry 94 07/28/24 06:30 Oxygen Delivery Room Air 07/28/24 06:30 Temperature 98.6 F 07/28/24 13:50 Pulse Rate 77 07/28/24 13:50 Respiratory Rate 16 07/28/24 13:50 Blood Pressure 150/49 H 07/28/24 13:50 Pulse Oximetry 96 07/28/24 13:50 Oxygen Delivery Room Air 07/28/24 11:07 <Zay Singer MD - Last Filed: 07/28/24 06:29> Vital Signs Temperature 98.1 F 07/28/24 06:30 Pulse Rate 87 07/28/24 06:30 Respiratory Rate 23 H 07/28/24 06:30 Blood Pressure 146/70 H 07/28/24 06:30 Pulse Oximetry 94 07/28/24 06:30 Oxygen Delivery Room Air 07/28/24 06:30 Temperature 98.6 F 07/28/24 13:50 Pulse Rate 77 07/28/24 13:50 Respiratory Rate 16 07/28/24 13:50 Blood Pressure 150/49 H 07/28/24 13:50 Pulse Oximetry 96 07/28/24 13:50 Oxygen Delivery Room Air 07/28/24 11:07 <Jeromy Power MD - Last Filed: 07/28/24 18:48> Medical Decision Making MDM Narrative Medical decision making narrative: The case was discussed with the hospitalist for admission CTA chest showed no evidence of right heart strain troponin was negative earlier the patient will be started on heparin drip <Zay Singer MD - Last Filed: 07/28/24 06:29> Vital Signs Vital Signs: Vital Signs Temperature 98.1 F 07/28/24 06:30 Pulse Rate 87 07/28/24 06:30 Respiratory Rate 23 H 07/28/24 06:30 Blood Pressure 146/70 H 07/28/24 06:30 Pulse Oximetry 94 07/28/24 06:30 Oxygen Delivery Room Air 07/28/24 06:30 Temperature 98.6 F 07/28/24 13:50 Pulse Rate 77 07/28/24 13:50 Respiratory Rate 16 07/28/24 13:50 Blood Pressure 150/49 H 07/28/24 13:50 Pulse Oximetry 96 07/28/24 13:50 Oxygen Delivery Room Air 07/28/24 11:07 <Zay Singer MD - Last Filed: 07/28/24 06:29> Vital Signs Temperature 98.1 F 07/28/24 06:30 Pulse Rate 87 07/28/24 06:30 Respiratory Rate 23 H 07/28/24 06:30 Blood Pressure 146/70 H 07/28/24 06:30 Pulse Oximetry 94 07/28/24 06:30 Oxygen Delivery Room Air 07/28/24 06:30 Temperature 98.6 F 07/28/24 13:50 Pulse Rate 77 07/28/24 13:50 Respiratory Rate 16 07/28/24 13:50 Blood Pressure 150/49 H 07/28/24 13:50 Pulse Oximetry 96 07/28/24 13:50 Oxygen Delivery Room Air 07/28/24 11:07 <Jeromy Power MD - Last Filed: 07/28/24 18:48> Lab Data Result diagrams: 07/28/24 10:32 <Zay Singer MD - Last Filed: 07/28/24 06:29> Critical Care Time Critical Care Time Critical Care Time: Yes <Jeromy Power MD - Last Filed: 07/28/24 18:48> Total Critical Care Time: 35 <Jeromy Power MD - Last Filed: 07/28/24 18:48> Discharge Plan Discharge Clinical Impression: COVID-19, Pulmonary embolism <Zay Singer MD - Last Filed: 07/28/24 06:29> Patient Disposition: Still a Patient <Zay Singer MD - Last Filed: 07/28/24 06:29> Condition: Serious <Zay Singer MD - Last Filed: 07/28/24 06:29> Time of Disposition: 06:28 <Zay Singer MD - Last Filed: 07/28/24 06:29> 06:28 <Jeromy Power MD - Last Filed: 07/28/24 18:48>
[2024-07-28 07:03] LABS: INR 1.1; Prothrombin Time 14.2 Seconds (11.1-14.7)
[2024-07-28 07:04] LABS: Partial Thromboplastin Time 29.1 Seconds (22.3-36.8)
[2024-07-28] MEDS: HEPARIN SODIUM 5,000 UNITS/ML VIAL 6000 UNITS IV PUSH (08:22)
[2024-07-28] MEDS: HEPARIN SOD/D5W 100 UNITS/ML 25,000 UNITS/250 ML BAG 14 UNITS IV CONT (08:23)
--- NOTE | 2024-07-28 09:40 | ADMGEN ---
This patient, Regi Lovelace, was admitted to [facility] Surg Room 329-01. Patient/family oriented to hospital policies and general routines including ID bracelet, bed and alarms, visiting hours, pain management, procedures, bathroom and other care routines, personal items, smoking policy, room service/diet, and visiting hours. Information on how to activate the Rapid Response Team has been discussed. Patient/Family are encouraged to report perceived risks to care and to ask questions if they do not understand what they are told or what they should do. Report from Ben in ER.
[2024-07-28 10:38] LABS: Basophils Percent Auto 0.5 % (0.2-1.2); Eosinophils Absolute Auto 0.1 K/mm3 (0-0.3); Hematocrit 42.9 % (37.0-47.0); Hemoglobin 14.6 g/dL (12.0-15.0); Immature Granulocyte Absolute 0.08 K/mm3 (0.00-0.031); Immature Granulocyte Percent A 1.1 % (0-0.5); Lymphocytes Absolute Auto 1.56 K/mm3 (0.9-3.2); Lymphocytes Percent Auto 21.3 % (18.3-44.2); Mean Corpuscular Hemoglobin 32.2 pg (26-34); Mean Corpuscular Volume 94.7 fl (80-100); Mean Platelet Volume 9.3 fl (7.4-10.4); Monocytes Absolute Auto 1.2 K/mm3 (0.1-0.6); Monocytes Percent Auto 16.4 % (2.6-8.5); Neutrophils Absolute Auto 4.4 K/mm3 (1.3-6.7); Neutrophils Percent Auto 59.7 % (45.5-73.1); Platelet Count Result 157 k/mm3 (150-375); Red Blood Count 4.53 M/mm3 (4.2-5.4); Red Cell Distribution Width 12.7 % (11.5-14.5); White Blood Count 7.3 K/mm3 (4.5-10.0)
[2024-07-28] MEDS: APIXABAN 5 MG TABLET 10 MG PO (15:42)
--- NOTE | 2024-07-28 15:45 | P.SS_ITS ---
Same Day Admit/Disch: HPI History of Present Illness Chief complaint: COVID 19/Pulmonary Embolism Narrative: Regi Lovelace is a 78 year old female With no significant past medical history who presented to the hospital with positive CT for pulmonary embolism. Patient originally presented on 07/27/2024 to the ED with low oxygen, cough, shortness a breath, sore throat, ear pressure and she was diagnosed with COVID. Workup in the hospital included a chest CTA which showed acute bilateral pulmonary emboli. There are acute pulmonary emboli in the upper lobes and right lower lobe. She was initially started on a heparin infusion and admitted. initial labs showed a normal white blood cell count of 7.3 otherwise unremarkable. [facility] Family History Family History Father Cancer of kidney CHF (congestive heart failure) Mother Skin cancer Social History Social History Smoking status: Never smoker Alcohol intake: current Drinks per week: 1 Substance use: never Substance use type: does not use Do You Feel Safe in your Home?: Yes Lack of Transportation: No Lack of Food: Never True Current Housing: I Have Housing Concerned About Future Housing: No Difficulty Paying Gas/Electric Bills: No Difficulty Paying for Meds: No Currently Unemployed: No Education: Don't Know Difficulty w/ Childcare or Family Care: No Spiritual care concerns: No Same Day Admit/Disch: Med Pre-admit Medications Home Medications ?Medication ?Instructions ?Recorded ?Confirmed ?Type montelukast 10 mg tablet 10 mg PO QPM 07/25/24 07/28/24 History naproxen 500 mg tablet 500 mg PO Q6H PRN pain 07/25/24 07/28/24 History prednisone 10 mg tablet 10 mg PO DAILY 07/25/24 07/28/24 History sodium hyaluronate (viscosup) 10 10 mg intra-articular [id number] 07/25/24 07/28/24 History mg/mL(mw 2.4-3.6 million)intra-articular syringe (Euflexxa) apixaban 5 mg tablet (Eliquis) 5 mg PO Q12HR #60 tabs 07/28/24 Rx apixaban 5 mg tablet (Eliquis) 10 mg (2 x 5 mg) PO Q12HR #26 tabs 07/28/24 Rx ergocalciferol (vitamin D2) 1,250 1,250 mcg PO WEEKLY 07/28/24 07/28/24 History mcg (50,000 unit) capsule fluticasone fur. 200 mcg-umeclid 1 inh inhalation DAILY 07/28/24 07/28/24 History 62.5 mcg-vilant 25 mcg inhalat.powder (Trelegy Ellipta) Review of Systems Review of Systems All systems reviewed & are unremarkable except as noted in HPI and below Exam Narrative: General: In no acute distress, well nourished Head: atraumatic, no encephalopathy Eyes: PERRLA, sclera clear ENT: moist mucous membranes, nasal passages clear Neck: supple, no JVD, no adenopathy, trachea midline Cardiac: Normal S1 and S2. No murmur, gallops or friction rubs, peripheral pulses intact. Respiratory: Lungs clear to auscultation, no adventitious lung sounds Currently on room air Gastrointestinal: soft, non-distended, non-tender, normoactive bowel sounds. : voiding without difficulty. Extremities: moves all extremities well, no edema, good ROM, strength 5/5 Skin: clean, dry, intact. No wounds or lesions. Neuro: Alert and oriented x4, cranial nerves intact, no neuro deficits. Psych: normal mood, normal affect, interactive DS: Data Data Completed and Pending Completed studies during hospitalization: chest CTA venous Doppler studies echocardiogram Pending studies at discharge: none Labs on day of discharge: Labs from last 24 hours 07/28/24 07/28/24 10:32 06:43 WBC 7.3 RBC 4.53 Hgb 14.6 Hct 42.9 MCV 94.7 MCH 32.2 MCHC 34.0 RDW 12.7 Plt Count 157 MPV 9.3 Immature Gran % (Auto) 1.1 H Neut % (Auto) 59.7 Lymph % (Auto) 21.3 [place] % (Auto) 16.4 H Eos % (Auto) 1.0 Baso % (Auto) 0.5 Lymph # (Auto) 1.56 [place] # (Auto) 1.2 H Eos # (Auto) 0.1 Baso # (Auto) 0.0 Abs Immat Gran (auto) 0.08 H Absolute Neuts (auto) 4.4 Absolute Nucleated RBC 0.000 Nucleated RBC % 0.0 PT 14.2 INR 1.1 APTT 29.1 Procedures/Treatments: none Imaging Radiologist's impression: EXAMINATION: CTA chest PE protocol DATE: 07/28/2024 02:27 INDICATION: Hypoxia. TECHNIQUE: Computed tomography angiography (CTA) of the chest was performed with 100 mL Omnipaque-350 intravenous contrast timed to evaluate the pulmonary arteries. Coronal maximum intensity projection 3D-reconstructions were created by the technologist. Automated exposure control and iterative reconstruction technique were employed. The dose-length product was 449.17 mGy-cm. COMPARISON: Chest CT 09/14/2014 FINDINGS: The lungs demonstrate mild atelectasis. No pleural effusion. Cardiomegaly is noted. There are coronary artery calcifications. No pericardial effusion. There are acute pulmonary emboli in the upper lobes and right lower lobe. There is a small sliding hiatal hernia. There are masses in the adrenal glands measuring up to 2.0 cm on the left measuring low attenuation, consistent with adenomas. There is mild thoracic spondylosis. There is mild chronic height loss of multiple vertebral bodies. IMPRESSION: 1. Acute bilateral pulmonary emboli. I called this result to Dr. Singer. Reviewed, dictated and finalized at location A. NING LATHE OPERATOR AUTOMATIC EXAMINATION: US venous doppler LE BI DATE: 07/28/2024 12:05 INDICATION: Acute bilateral pulmonary emboli. TECHNIQUE: Grayscale ultrasound images without and with compression and Doppler ultrasound images of the bilateral lower extremity veins were obtained. COMPARISON: None. FINDINGS: The visualized portions of right common femoral vein, profunda (deep) femoral vein, femoral vein, popliteal vein, peroneal veins, posterior tibial veins, and greater saphenous vein outflow are patent. The visualized portions of left common femoral vein, profunda femoral vein, femoral vein, popliteal vein, peroneal veins, posterior tibial veins, and greater saphenous vein outflow are patent. IMPRESSION: 1. No deep venous thrombosis. Reviewed, dictated and finalized at location A. NING LATHE OPERATOR AUTOMATIC DS: Summary Hospital Course Reason for hospitalization: pulmonary embolism COVID Hospital Course: xin Lovelace is a 78 year old female With no significant past medical history who presented to the hospital with positive CT for pulmonary embolism. Patient originally presented on 07/27/2024 to the ED with low oxygen, cough, shortness a breath, sore throat, ear pressure and she was diagnosed with COVID. Workup in the hospital included a chest CTA which showed acute bilateral pulmonary emboli. There are acute pulmonary emboli in the upper lobes and right lower lobe. She was initially started on a heparin infusion and admitted. initial labs showed a normal white blood cell count of 7.3 otherwise unremarkable. venous Doppler study was obtained and was negative for DVT. Echocardiogram was negative for right heart strain, showed a normal LV systolic function with an estimated EF of 55-60%, otherwise normal. Heparin drip was stopped and patient was started on Eliquis per PE protocol. She was instructed to follow up with her primary care doctor in 1 week. She is stable for discharge at this time. Final diagnosis: pulmonary embolism, COVID-19 Status at Discharge Cognitive/behavioral status at discharge: alert oriented x4 Functional status at discharge: independent ambulation Overall status at discharge: patient is progressing back to baseline Time Spent with Patient Time attestation: Total time spent providing and/or coordinating discharge services: Time spent: Greater than 30 minutes DS: Admitting Diagnosis Discharge Date 07/28/24 Admitting Diagnosis pulmonary embolism COVID-19 DS: Discharge Diagnosis Discharge Diagnosis (1) Pulmonary embolism: Code(s): I26.99 - Other pulmonary embolism without acute cor pulmonale Status: Acute (2) COVID-19: Code(s): U07.1 - COVID-19 Status: Acute Discharge Plan Discharge Attending physician on discharge: Bruno Chao Discharging Clinician: Arlene Katz Anticipated Discharge Date/Time: 07/28/24 14:26 Patient Disposition: Home, Self-Care Activity: as tolerated Diet: as tolerated and regular Discharge Instructions: * You have been prescribed Eliquis for your pulmonary embolism. We give a loading dose of 10 mg twice a day for 7 days and then switch due to 5 mg twice a day as her maintenance dose. * Your echocardiogram was essentially normal showing normal LV systolic function with an estimated ejection fraction of 55-60%, there was no evidence of right heart strain. * We also checked venous Dopplers which were negative for DVT * Talk with your primary care doctor about a cardiology consult for a Holter monitor to rule out atrial fibrillation which is known to cause blood clots. You may need to wear Holter monitor for 30 days to assess for this arrhythmia. * Follow-up with your primary care doctor in 1 week for continuation of your blood thinner and further monitoring. * As for your COVID diagnosis continue to treat the symptoms. You may use Mucinex if you have a productive cough. Remember to stay hydrated and eat a healthy diet. Your COVID symptoms should resolve in 7-10 days. Patient Instructions: Antibiotic Form, Apixaban (By mouth), Pulmonary Embolism (DC), COVID-19 (Coronavirus Disease 2019) (DC) Patient Language: Syriac Stand Alone Forms: General Discharge Information Follow-up/Referrals: Harms,Romel Ball M.D. [Primary Care Provider] - 1 Week Discharge Medications: New Eliquis 5 mg Tablet 5 mg PO Q12HR Qty: 60 0RF Eliquis 5 mg Tablet 10 mg PO Q12HR Qty: 26 0RF Continued prednisone 10 mg tablet 10 mg PO DAILY montelukast 10 mg tablet 10 mg PO QPM naproxen 500 mg tablet 500 mg PO Q6H PRN (Reason: pain) Euflexxa 10 mg/mL(mw 2.4 -3.6 million) syringe 10 mg INTRA-ARTICULAR [id number] ergocalciferol (vitamin D2) 1,250 mcg (50,000 unit) capsule 1,250 mcg PO WEEKLY Trelegy Ellipta 200-62.5-25 mcg blister with device 1 inh INHALATION DAILY Date of admission: 07/28/24 06:28 Primary Care Provider: Charlene,Romel Ball Admitting Provider: Cole Davis V. Attending physician on admission: oCle Davis V. Condition: Serious
== END 2024-07-28 16:25 | disposition home or self-care (01) ==
LOC: ANHED 06:29 → ANH3MEDSUR 14:07
PROVIDERS: Emergency Medicine; Admitting Provider Internal Medicine; Emergency Provider Emergency Medicine; PCP Family Medicine; Visit Provider Internal Medicine
DX: U07.1 COVID-19 (principal); I26.99 Other pulmonary embolism without acute cor pulmonale; Z79.01 Long term (current) use of anticoagulants; Z79.51 Long term (current) use of inhaled steroids
CPT/HCPCS: 36415; 85025; 85610; 85730; 93306; 93970; 96374; 99285; A9270; G0378; J1644

== ENCOUNTER 2025-07-12 08:38 | Outpatient (CLI) | payer MEDICARE, SELFPAY ==
--- NOTE | ~2025-07-12 | NM_ITS ---
EXAMINATION: NM asuncion stress w perfusion DATE: 07/12/2025 10:35 INDICATION: Preop TECHNIQUE: Rest images were obtained following intravenous administration of 10.7 mCi Tc99m tetrofosmin (Myoview). The patient was infused intravenously with Lexiscan (regadenoson). Then, 34.9 mCi Tc99m tetrofosmin (Myoview) was administered intravenously, and stress images were obtained. Data was kishor nstructed into short axis and horizontal and vertical long axis SPECT images. Gated SPECT images were also obtained. COMPARISON: None. FINDINGS: There is no definite reversible or fixed perfusion abnormality to suggest ischemia or infarction. There is no segmental wall motion abnormality. Left ventricular ejection fraction measures 68%. IMPRESSION: 1. No definite ischemia or infarct. 2. Normal left ventricular ejection fraction measuring 68%. Reviewed, dictated and finalized at location A. R REPAIRER
--- NOTE | 2025-07-12 08:57 | EST_ITS ---
Patient Info Name: Regi Lovelace Age: 79 years : 1945 Gender: Female Ht: 67 in Wt: 210 lbs BSA: 2.16 m2 HR: 66 bpm BP: 162 / 72 mmHg Exam Date: 07/12/2025 8:57 AM Patient Status: O Admit Date: 07/12/2025 Exam Type: CA stress asuncion w NM A regadenoson stress test was performed. Staff Referring Physician: Kervin Cooper DO Attending Provider: Kervin Cooper DO Exercise Technologist: Jolanta Mark Exercise Physician: Kervin Cooper DO Summary 1. 1. Negative lexiscan stress test for ischemic ST changes by ECG criteria. 2. 2. Baseline hypertension. 3. 3. Nuclear scan to follow and will be reported separately. Please correlate with it. 4. 4. Patient informed of the above results. Protocol: Lexiscan Stress ECG Details Stage: REST Duration (min): 2 min : 43 sec HR (bpm): 66 SBP (mmHg): 162 DBP (mmHg): 72 Stage: REST Duration (min): 5 min : 59 sec HR (bpm): 67 SBP (mmHg): 162 DBP (mmHg): 72 Stage: STAGE 1 Duration (min): 1 min : 0 sec HR (bpm): 97 SBP (mmHg): 146 DBP (mmHg): 59 Stage: RECOVERY Duration (min): 1 min : 0 sec HR (bpm): 104 SBP (mmHg): 146 DBP (mmHg): 59 Stage: RECOVERY Duration (min): 2 min : 0 sec HR (bpm): 89 SBP (mmHg): 146 DBP (mmHg): 59 Stage: RECOVERY Duration (min): 3 min : 0 sec HR (bpm): 90 SBP (mmHg): 132 DBP (mmHg): 57 Stage: RECOVERY Duration (min): 3 min : 10 sec HR (bpm): 92 SBP (mmHg): 132 DBP (mmHg): 57 Rest HR: 67 bpm Peak HR: 104 bpm Rest Sys BP: 162 mmHg Peak Sys BP: 146 mmHg Max Pred HR: 142 bpm % Max Pred HR: 73 % Target HR: 121 bpm Max RPP: 15,184 bpm*mmHg Termination Reason: Completed protocol Cardiac Symptoms: None Total Time: 1 min : 0 sec Rest Nolan BP: 72 mmHg Peak Nolan BP: 59 mmHg Total Dose: 0.4 mg Resting ECG Sinus rhythm. Stress ECG No ST changes. Arrhythmias None. Report Signatures
== END 2025-07-12 08:39 | disposition home or self-care (01) ==
PROVIDERS: PCP Family Medicine; Visit Provider Internal Medicine Cardiovascular Disease
DX: Z01.810 Encounter for preprocedural cardiovascular examination (principal)
CPT/HCPCS: 78452; 93017; A9502; J2785